=== PATIENT | female | born 1950 | race Caucasian/White ===

== ENCOUNTER → 2016-12-06 | Outpatient (CLI) | payer MEDICARE, OTHER ==
[~2016-12-06] MED LIST: ALLEGRA-D 12 H1 EACH PO; ATENOLOL-CHLOR1 EACH PO; CALTRATE 600 WI1 TAB PO; FISH OIL1 GM PO; FOSAMAX70 MG PO; GLUCOPHAGE1000 MG PO; LOPID600 MG PO; LUTEIN20 MG PO; NIACIN ER500 MG PO; NORCO 325-5 MG1 TAB PO; NORVASC5 MG PO; PRILOSEC20 MG PO; PRINIVIL20 MG PO; ULTRAM50 MG PO; WELLBUTRIN SR150 MG PO; ZOCOR40 MG PO
== END | disposition short-term general hospital (02) ==
LOC: CLNEUR 10:59
DX: M54.32 Sciatica, left side (principal); M47.896 Other spondylosis, lumbar region; M41.9 Scoliosis, unspecified

== ENCOUNTER 2017-01-06 08:38 | Day surgery (SDC) | payer MEDICARE, OTHER ==
[2017-01-06] MEDS ORDERED: ULTRAM50 MG PO (12:09)
[2017-01-06] MEDS ORDERED: FOSAMAX70 MG PO (12:09)
== END 2017-01-06 09:55 | disposition short-term general hospital (02) ==
LOC: SURGOP 08:38
PROC: 0DJD8ZZ Inspection of Lower Intestinal Tract, Via Natural or Artificial Opening Endoscopic (ICD-10-PCS; principal; 2017-01-06)
DX: Z12.11 Encounter for screening for malignant neoplasm of colon (principal); I10 Essential (primary) hypertension; E11.9 Type 2 diabetes mellitus without complications; E78.5 Hyperlipidemia, unspecified; M19.90 Unspecified osteoarthritis, unspecified site; Z86.010 Personal history of colon polyps; Z79.899 Other long term (current) drug therapy; Z90.49 Acquired absence of other specified parts of digestive tract; Z98.51 Tubal ligation status
CPT/HCPCS: 00810; G0105